=== PATIENT | male | born 1970 | race Caucasian/White ===

== ENCOUNTER 2022-03-05 13:00 | Outpatient (CLI) | payer OTHER, SELFPAY ==
[2022-03-05 13:50] LABS: Chloride* 101 mmol/L (96-114); Potassium* 4.5 mmol/L (3.6-5.1); Sodium* 140 mmol/L (135-149)
[2022-03-05 13:53] LABS: Blood Urea Nitrogen* 9 mg/dL (7-30); Carbon Dioxide* 30 mmol/L (20-32); Cholesterol* 217 mg/dL (90-199); Creatinine* 0.8 mg/dL (0.5-1.5); Estimated Glomerular Filt Rate 107 ml/min; Glucose* 99 mg/dL (60-115)
[2022-03-05 13:54] LABS: Calcium* 9.6 mg/dL (8.4-10.6); HDL Cholesterol* 37 mg/dL (>=40); LDL Cholesterol Calculated 94 mg/dL (<100); Triglycerides* 431 mg/dL (40-149)
[2022-03-08 16:47] LABS: PSA Screen* 1.18 ng/mL (0.10-4.00)
== END 2022-03-05 13:01 | disposition home or self-care (01) ==
PROVIDERS: PCP Family Medicine; Visit Provider Family Medicine
DX: Z00.00 Encounter for general adult medical examination without abnormal findings (principal); R53.83 Other fatigue; I10 Essential (primary) hypertension; E78.00 Pure hypercholesterolemia, unspecified; M10.9 Gout, unspecified; Z12.5 Encounter for screening for malignant neoplasm of prostate
CPT/HCPCS: 80048; 80061; 84153

== ENCOUNTER 2022-06-06 09:32 | Outpatient (CLI) | payer OTHER, SELFPAY | END 2022-06-06 09:33 | disposition home or self-care (01) | LOC: NFLDREF 06-08 01:39 | PROVIDERS: PCP Family Medicine; Referring Provider Family Medicine; Visit Provider Family Medicine | DX: E78.00 Pure hypercholesterolemia, unspecified (principal) | CPT/HCPCS: 80061; 80076 ==

== ENCOUNTER 2024-03-13 08:26 | Outpatient (CLI) | payer OTHER, SELFPAY | END 2024-03-13 08:27 | disposition home or self-care (01) | LOC: NFLDREF 03-14 20:51 | PROVIDERS: PCP Family Medicine; Referring Provider Family Medicine; Visit Provider Family Medicine | DX: Z12.5 Encounter for screening for malignant neoplasm of prostate (principal); Z13.0 Encounter for screening for diseases of the blood and blood-forming organs and certain disorders involving the immune mechanism; Z13.6 Encounter for screening for cardiovascular disorders | CPT/HCPCS: 80053; 80061; G0103 ==

== ENCOUNTER 2024-03-24 08:07 | Outpatient (CLI) | payer OTHER, SELFPAY | END 2024-03-24 08:08 | disposition home or self-care (01) | LOC: NFLDREF 03-27 05:27 | PROVIDERS: PCP Family Medicine; Referring Provider Family Medicine; Visit Provider Family Medicine | DX: R53.83 Other fatigue (principal) | CPT/HCPCS: 84270; 84402; 84403; 84439; 84443; 84480 ==

== ENCOUNTER 2024-10-07 09:18 | Outpatient (CLI) | payer OTHER, SELFPAY | END 2024-10-07 09:19 | disposition home or self-care (01) | LOC: NFLDREF 10-09 02:57 | PROVIDERS: PCP Family Medicine; Referring Provider Family Medicine; Visit Provider Family Medicine | DX: E78.00 Pure hypercholesterolemia, unspecified (principal) | CPT/HCPCS: 80061; 80076 ==

== ENCOUNTER 2024-11-19 12:58 | Outpatient (CLI) | payer OTHER, SELFPAY | END 2024-11-19 12:59 | disposition home or self-care (01) | PROVIDERS: PCP Family Medicine; Visit Provider Family Medicine | DX: Z00.00 Encounter for general adult medical examination without abnormal findings (principal); E78.00 Pure hypercholesterolemia, unspecified; I10 Essential (primary) hypertension; M10.9 Gout, unspecified; R53.83 Other fatigue; R79.89 Other specified abnormal findings of blood chemistry | CPT/HCPCS: 80048; 82043; 82570; 84270; 84402; 84403; 84439; 84443; 84550 ==

== ENCOUNTER 2024-12-11 11:38 | Outpatient (CLI) | payer OTHER, SELFPAY | END 2024-12-11 11:39 | disposition home or self-care (01) | LOC: LKVREF 11:39 | PROVIDERS: PCP Family Medicine; Visit Provider Family Medicine | DX: I10 Essential (primary) hypertension (principal); R79.89 Other specified abnormal findings of blood chemistry | CPT/HCPCS: 83001; 83002 ==

== ENCOUNTER 2024-12-21 10:44 | Outpatient (CLI) | payer OTHER, SELFPAY ==
--- NOTE | 2024-12-21 10:45 | CRLHL7_ITS ---
For Patients: As a result of the Century Cures Act, medical imaging exams and procedure reports are released immediately into your electronic medical record. You may view this report before your referring provider. If you have questions, please contact your health care provider. INDICATION: abnormal TSH, normal T4, no obvious abnormalities noted COMPARISON: none TECHNIQUE: Chew scale and color Doppler images were acquired of the thyroid gland. FINDINGS: The thyroid gland demonstrates normal uniform echogenicity and has a smooth outer contour. The right lobe measures 3.8 x 1.8 x 1.3 cm and the left lobe measures 5.5 x 1.7 x 1.8 cm in size. The isthmus measures 3 millimeters. There are no suspicious masses or nodules. The color Doppler images demonstrate normal vascularity. There is no evidence of cervical lymphadenopathy or parathyroid mass. IMPRESSION: Normal thyroid ultrasound. Dictated by Danial Ortiz MD @ 12/21/2024 11:48:15 AM (Electronically Signed)
== END 2024-12-21 10:45 | disposition home or self-care (01) ==
LOC: US 10:45
PROVIDERS: PCP Family Medicine; Visit Provider Family Medicine
DX: R79.89 Other specified abnormal findings of blood chemistry (principal)
CPT/HCPCS: 76536